=== PATIENT | female | born 1970 | race Caucasian/White ===

== ENCOUNTER → 2022-10-24 09:50 | Outpatient (BNVA) | payer OTHER, MEDICAID, SELFPAY | PROVIDERS: Family Provider Family Medicine; PCP Family Medicine; Visit Provider Family Medicine | DX: E05.90 Thyrotoxicosis, unspecified without thyrotoxic crisis or storm (principal); G40.909 Epilepsy, unspecified, not intractable, without status epilepticus; E11.9 Type 2 diabetes mellitus without complications; G62.9 Polyneuropathy, unspecified; K21.9 Gastro-esophageal reflux disease without esophagitis; E78.5 Hyperlipidemia, unspecified; J45.909 Unspecified asthma, uncomplicated; M81.0 Age-related osteoporosis without current pathological fracture; E16.2 Hypoglycemia, unspecified; F17.200 Nicotine dependence, unspecified, uncomplicated; Z71.6 Tobacco abuse counseling | CPT/HCPCS: 80053; 80061; 83036; 84439; 84443; 85025 ==

== ENCOUNTER → 2022-12-15 08:01 | Outpatient (BNVA) | payer OTHER, MEDICAID, SELFPAY | PROVIDERS: Family Provider Family Medicine; PCP Family Medicine; Visit Provider Psychiatry & Neurology Neurology | DX: G40.919 Epilepsy, unspecified, intractable, without status epilepticus (principal); E05.90 Thyrotoxicosis, unspecified without thyrotoxic crisis or storm; M81.0 Age-related osteoporosis without current pathological fracture; F17.210 Nicotine dependence, cigarettes, uncomplicated; E11.40 Type 2 diabetes mellitus with diabetic neuropathy, unspecified; Z79.84 Long term (current) use of oral hypoglycemic drugs | CPT/HCPCS: 99203 ==

== ENCOUNTER 2022-12-16 09:12 | Outpatient (CLI) | payer OTHER, MEDICAID, SELFPAY ==
[2022-12-16 09:38] LABS: Basophils # 0.1 10^3/uL (0.0-0.1); Basophils % 1.3 %; Eosinophils # 0.4 10^3/uL (0.0-0.8); Eosinophils % 6.5 %; Hematocrit 40.8 % (36-47); Lymphocytes # 2.8 10^3/uL (0.8-4.8); Mean Corpuscular HGB Conc 32.8 g/dL (30-55); Mean Corpuscular Hemoglobin 30.9 pg (27-33); Mean Platelet Volume 10.6 fL (7.4-10.4); Monocytes # 0.4 10^3/uL (0.2-0.9); Monocytes % 6.3 %; Neutrophils # 1.97 10^3/uL (1.8-7.7); Neutrophils % 35.7 %; Nucleated Red Blood Cells % 0 %; Platelet Count 205 10^3/cmm (157-399); Red Blood Count 4.34 10^6/uL (3.85-5.65); Red Cell Distribution Width 12.4 % (12.1-15.1); White Blood Count 5.52 10^3/uL (3.29-11.43)
[2022-12-16 09:59] LABS: Alanine Aminotransferase 10 U/L (0-33); Alkaline Phosphatase 93 U/L (35-105); Anion Gap 13.1 (5-19); Aspartate Amino Transferase 12 U/L (0-32); Blood Urea Nitrogen 14 mg/dL (6-20); Calcium 9.6 mg/dL (8.5-10.5); Carbon Dioxide 24 mmol/L (22-29); Chloride 105 mmol/L (98-107); Globulin 2.7 g/dL (1.3-4.6); Glomerular Filtration Rate 87.9 mL/min (90-130); Glucose 76 mg/dL (65-115); Osmolality Calculated 285 mOsm/kg (285-295); Potassium 4.1 mmol/L (3.5-5.1); Sodium 138 mmol/L (136-145); Total Bilirubin 0.2 mg/dL (0.15-1.2); Total Protein 6.7 g/dL (6.6-8.7)
[2022-12-17 11:39] LABS: Levetiracetam Immunoassy 21.4 mcg/mL (6.0-46.0)
== END 2022-12-16 09:13 | disposition home or self-care (01) ==
PROVIDERS: PCP Family Medicine; Visit Provider Psychiatry & Neurology Neurology
DX: G40.909 Epilepsy, unspecified, not intractable, without status epilepticus (principal); E05.90 Thyrotoxicosis, unspecified without thyrotoxic crisis or storm; M81.0 Age-related osteoporosis without current pathological fracture
CPT/HCPCS: 36415; 80053; 80177; 85025

== ENCOUNTER → 2022-12-20 14:07 | Outpatient (BNVA) | payer OTHER, MEDICAID, SELFPAY | PROVIDERS: PCP Family Medicine; Visit Provider Registered Nurse Neonatal Intensive Care | DX: S69.90XA Unspecified injury of unspecified wrist, hand and finger(s), initial encounter (principal); X58.XXXA Exposure to other specified factors, initial encounter | CPT/HCPCS: 73110 ==

== ENCOUNTER 2023-01-08 13:03 | Emergency (ER) | payer MEDICARE, MEDICAID, SELFPAY ==
[2023-01-08 13:06] VITALS: BP 109/69; PULSE 84; RESP 18; TEMP 36.8; O2SAT 96; BMI 22.6
--- NOTE | 2023-01-08 13:11 | XRR_ITS ---
PROCEDURE INFORMATION: Exam: XR Chest Exam date and time: 01/08/2023 1:22 PM Age: 52 years old Clinical indication: Chest wall pain; Additional info: Cp, HX asthma TECHNIQUE: Imaging protocol: Radiologic exam of the chest. Views: 1 view. COMPARISON: No relevant prior studies available. FINDINGS: Lungs: There is no consolidation. Pleural spaces: There is no pleural effusion or pneumothorax. Heart/Mediastinum: Cardiomediastinal contours are unremarkable. Bones/joints: Bones are unremarkable. XR/XR chest 1V [id number] IMPRESSION: No acute findings.
--- NOTE | 2023-01-08 13:12 | ECG_ITS ---
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 Measurements Intervals [place] Rate: 83 P: 69 VA: 183 QRS: 145 QRSD: 94 T: 73 QT: 364 QTc: 428 Interpretive Statements SINUS RHYTHM INDETERMINATE AXIS INCOMPLETE RIGHT BUNDLE BRANCH BLOCK [90+ ms QRS DURATION, TERMINAL R IN V1/V2, 40+ ms S IN I/aVL/V4/V5/V6] No previous ECG available for comparison Electronically Signed On 01-08-2023 21:27:51 FOOD AND NUTRITION SERVICES SUPERVISOR by Mary Alice Kelly M.D. [id number] f
--- NOTE | 2023-01-08 13:13 | ED_ITS ---
<Statement entered by Kamran Shabazz DO - 01/08/23 16:12> This chart is being reviewed for hospital part policy regarding patient seen by advanced practice providers in this emergency department. This patient was not seen or evaluated by me personally. The advanced practice provider did review this case with me. I agree with the management as documented in this chart. HPI - Chest Pain 2 General: Chief Complaint: Chest Pain Stated Complaint: CHEST PAIN Time Seen by Provider: 01/08/23 13:08 Source: patient and EMS Mode of arrival: EMS Limitations: no limitations History of Present Illness: Patient presents emergency department today brought by EMS for evaluation treatment of sharp retrosternal chest pains. Patient states that she was doing some housework when she noticed sudden onset of her discomfort. She called 911 and EMS indicates patient was on her porch waiting for their arrival. Patient was wheezy when they got there. She does have a history of asthma and reports taking asthma medication daily. They provided her 325 aspirin, a breathing treatment and nitro. Patient states she noticed improvement of her discomfort after the nitro but now reports chest pain returning approximately 5 out of 10. POC glucose by EMS was 110. Patient denies any recent illness with acute worsening of cough or congestion. EMS reports history of hyperthyroidism, angina, and seizures. Review of Systems 2 General: Reports: 10 or more systems reviewed and unremarkable except in HPI and below PFSH ED 2 PFSH: Medical History Epilepsy Hyperthyroidism DM type 2 (diabetes mellitus, type 2) Osteoporosis Neuropathy Asthma Surgical History H/O shoulder surgery H/O: knee surgery H/O removal of cyst Family History Father Chronic kidney disease (CKD) Mother Anxiety Grandmother Cancer Maternal-breast Other Dementia Lung disease Denies family history of Diabetes CAD (coronary artery disease) Clotting disorder Hyperlipidemia Psychiatric illness Anesthesia complication Bleeding disorder Hypertension Stroke Social History Smoking and tobacco/nicotine status: current every day tobacco/nicotine user cigarettes Packs smoked per day: 1.5 Quit status (tobacco/nicotine): not considering quitting Second hand smoke exposure: No Alcohol intake: former Substance/Drug Use: current Substance/Drug use frequency: few times a month Other substance/drug use details: edibles Lives independently: Yes Marital status: Life Partner Current occupational status: disabled Special tegan needs: No Agree to transfusion: Yes Physical Exam 2 Const: COMMON NORMALS: no acute distress, patient oriented x3 and alert HENMT: COMMON NORMALS: normocephalic, atraumatic, hearing grossly normal bilaterally and moist oral mucous membranes HEAD & SCALP: normocephalic and atraumatic Eye: COMMON NORMALS: Equal, round and reactive pupils present, EOMs intact bilaterally and conjunctivae normal CONJUNCTIVA: Yes conjunctivae normal P UPIL: Yes Equal, round and reactive pupils present Neck/C-Spine: COMMON NORMALS: full ROM and no JVD Lymph: LYMPHATIC: no lymphadenopathy noted Resp: COMMON NORMALS: normal respiratory effort, No retractions and No use of accessory muscles OTHER: Patient has diminished lung sounds bilaterally and throughout all lobes. Pulse ox 96% on room air Cardio: COMMON NORMALS: no JVD, regular rate and regular rhythm RATE: r egular rate RHYTHM: regular rhythm : COMMON NORMALS: Yes no CVA tenderness BLADDER/KIDNEY EXAM: Yes no CVA tenderness Back/Pelvis: COMMON NORMALS: no CVA tenderness, no thoracic nor lumbar tenderness and thoraco-lumbar ROM normal Extremity: COMMON NORMALS: normal to inspection, full ROM and capillary refill normal Neuro: COMMON NORMALS: patient oriented x3 SENSORIUM/ORIENTATION: Yes alert Psych: COMMON NORMALS: mental status grossly normal, Normal thought process present, cooperative, normal affect and activity/motor behavior normal T HOUGHT PROCESS: Normal thought process present Skin: COMMON NORMALS: no rashes or lesions noted and no wounds GENERAL SKIN EXAM: no rashes or lesions noted Course 2 Vital Signs: Vital signs: Vital Signs Temperature 98.3 F 01/08/23 13:06 Pulse Rate 85 01/08/23 15:54 Respiratory Rate 18 01/08/23 14:10 Blood Pressure 108/57 01/08/23 15:54 Pulse Oximetry 97 01/08/23 15:54 Oxygen Delivery Me thod Room Air 01/08/23 15:54 MDM - Chest Pain Medical Decision Making Cardiac evaluation today is negative. No signs of acute STEMI on EKG with second read by Dr Shabazz. Troponins indicate no signs of NSTEMI. Patient received steroids and a DuoNeb treatment here in the emergency department. Patient notes significant improvement to her chest discomfort after these treatments. Did discuss with her no other acute findings on her lab work today and would encourage continued treatment for a COPD/asthma exacerbation. Patient states that she recently moved back to the area about 3 months ago and prior to moving from [place] the first time, she had significant allergy and asthma flareups in the fall. I encouraged patient to use her rescue inhaler every 2-4 hours for the next couple of days. She is also given a methylprednisolone Dosepak as well. I encouraged follow-up appoint with her primary care doctor later this week for recheck. However, we went over signs and symptoms of both cardiac concern and stroke for which patient will need to return back here to the emergency department for full evaluation. Patient verbalized understanding and agreement to treatment plan. Differential Diagnosis Unlikely acute massive pulmonary embolism, acute respiratory failure, acute myocardial infarction, cardiac arrest or sudden cardiac Lab Data 01/08/23 12:30 01/08/23 12:30 Radiology Impressions Chest X-Ray 01/08/23 13:11 IMPRESSION: No acute findings. Laboratory Results WBC 4.24 10^3/uL (3.29-11.43) 01/08/23 12:30 RBC 4.36 10^6/uL (3.85-5.65) 01/08/23 12:30 Hgb 13.30 g/dL (11.27-16.99) 01/08/23 12:30 Hct 40.1 % (36-47) 01/08/23 12:30 MCV 92.0 fl (85-98) 01/08/23 12:30 MCH 30.5 pg (27-33) 01/08/23 12:30 MCHC 33.2 g/dL (30-55) 01/08/23 12:30 RDW 12.7 % (12.1-15.1) 01/08/23 12:30 Plt Count 158 10^3/cmm (157-399) 01/08/23 12:30 MPV 10.8 fL (7.4-10.4) H 01/08/23 12:30 Neut % (Auto) 43.7 % 01/08/23 12:30 Lymph % (Auto) 43.2 % 01/08/23 12:30 [place] % (Auto) 11.1 % 01/08/23 12:30 Eos % (Auto) 0.9 % 01/08/23 12:30 Baso % (Auto) 0.9 % 01/08/23 12:30 Neut # (Auto) 1.85 10^3/uL (1.8-7.7) 01/08/23 12:30 Lymph # (Auto) 1.8 10^3/uL (0.8-4.8) 01/08/23 12:30 [place]ountain # (Auto) 0.5 10^3/uL (0.2-0.9) 01/08/23 12:30 Eos # (Auto) 0.0 10^3/uL (0.0-0.8) 01/08/23 12:30 Baso # (Auto) 0.0 10^3/uL (0.0-0.1) 01/08/23 12:30 Nucleated RBC % (auto) 0 % 01/08/23 12:30 Nucleated RBCs # 0.0 /100WBC 01/08/23 12:30 Sodium 141 mmol/L (136-145) 01/08/23 12:30 Potassium 4.2 mmol/L (3.5-5.1) 01/08/23 12:30 Chloride 107 mmol/L (98-107) 01/08/23 12:30 Carbon Dioxide 24 mmol/L (22-29) 01/08/23 12:30 Anion Gap 14.2 (5-19) 01/08/23 12:30 BUN 17 mg/dL (6-20) 01/08/23 12:30 Creatinine 0.9 mg/dL (0.5-0.9) 01/08/23 12:30 GFR Calculation 65.8 mL/min (90-130) L 01/08/23 12:30 Glucose 78 mg/dL (65-115) 01/08/23 12:30 Calculated Osmolality 292 mOsm/kg (285-295) 01/08/23 12:30 Calcium 9.8 mg/dL (8.5-10.5) 01/08/23 12:30 Total Bilirubin 0.2 mg/dL (0.15-1.2) 01/08/23 12:30 AST 13 U/L (0-32) 01/08/23 12:30 ALT 8 U/L (0-33) 01/08/23 12:30 Alkaline Phosphatase 101 U/L (35-105) 01/08/23 12:30 Troponin T Baseline < 6 ng/L (0-10) 01/08/23 12:30 Troponin T 120 Minute 6.00 ng/L (0-10) 01/08/23 14:42 Delta Troponin T 0.52130 ABS# (0-10) 01/08/23 14:42 Total Protein 6.5 g/dL (6.6-8.7) L 01/08/23 12:30 Albumin 4.2 g/dL (3.5-5.2) 01/08/23 12:30 Globulin 2.3 g/dL (1.3-4.6) 01/08/23 12:30 TSH 3.05 uIU/mL (0.27-4.20) 01/08/23 12:30 Urine Color Yellow (Yellow) 01/08/23 13:48 Urine Appearance Hazy (CLEAR) A 01/08/23 13:48 Urine pH 8 (5-7) H 01/08/23 13:48 Ur Specific [place] 1.010 (1.005-1.030) 01/08/23 13:48 Urine Protein Neg (Negative) 01/08/23 13:48 Urine Glucose (UA) Norm (Normal) 01/08/23 13:48 Urine Ketones 1+ (Negative) H 01/08/23 13:48 Urine Blood 3+ (Negative) H 01/08/23 13:48 Urine Nitrate Negative (Negative) 01/08/23 13:48 Urine Bilirubin Neg (Negative) 01/08/23 13:48 Urine Urobilinogen 1 mg/dL (Negative) H 01/08/23 13:48 Ur Leukocyte Esterase Negative (Negative) 01/08/23 13:48 Urine RBC 5-10 /hpf (0-2) H 01/08/23 13:48 Urine WBC 0-4 /hpf (0-5) H 01/08/23 13:48 Ur Squamous Epith Cells 0-4 /hpf (0-5) H 01/08/23 13:48 Amorphous Sediment 4+ /hpf 01/08/23 13:48 Urine Bacteria Trace /hpf (NONE) 01/08/23 13:48 All radiology interpretation(s) finalized by discharge Discharge Plan Discharge Patient Disposition: Home Clinical Impression: Non-cardiac chest pain Condition: Stable Prescriptions: New Methylpred DP 4 mg tablets,dose pack See Rx Instructions .ROUTE .COMPLEX Qty: 21 0RF Rx Instructions: orally per package directions No Action albuterol sulfate 90 mcg/actuation HFA aerosol inhaler 1 inh inhalation QID PRN (Reason: shortness of breath or wheezing) Qty: 8.5 3RF methimazole 10 mg tablet 10 mg PO DAILY Qty: 90 1RF rosuvastatin 20 mg tablet 20 mg PO DAILY Qty: 90 1RF Xcopri 150 mg tablet 150 mg PO DAILY Qty: 90 2RF levetiracetam 750 mg tablet 1,500 mg PO BID Qty: 360 2RF pantoprazole 40 mg tablet,delayed release (DR/EC) See Rx Instructions .ROUTE .COMPLEX Qty: 90 0RF Dose Instruction: TAKE 1 TABLET BY MOUTH DAILY Rx Instructions: TAKE 1 TABLET BY MOUTH DAILY (DME) lancets [OneTouch UltraSoft 2 Lancet] 30 gauge misc See Rx Instructions .Route Qty: 100 2RF Rx Instructions: As directed Discharge Orders: Discharge ED (Routine); Ordered 01/08/23 Ordered By: Elza Lomas Referrals: Charli Bonilla MD [Primary Care Provider] - Discharge Diet: Usual diet Discharge Activity: Increase activity as tolerated Patient Instructions: Chest Pain - Noncardiac Activity Restrictions/Additional Instructions: Labs today are unremarkable. We did do an evaluation on your heart to make sure you are not showing any underlying signs of heart damage. All of these labs came back normal. The electrical tracings of your heart also showed no signs of acute abnormalities. I am providing you a burst of steroids to help with a potential acute flareup of asthma/COPD. I encourage you to use your inhaler every 2-4 hours for the next couple of days before returning to your typical once a day usage. Also, I do recommend a follow-up appoint with your primary care doctor later this week. However, if you develop recurrence of chest pain, severe headache, fevers, vomiting, or numbness to your left arm or any type of facial droop or weakness you need to return back here to the emergency department. Coding Level of Care Code ED Senior Media Buyer for Pankaj Terrell
[2023-01-08 13:22] LABS: Basophils % 0.9 %; Eosinophils % 0.9 %; Hematocrit 40.1 % (36-47); Lymphocytes # 1.8 10^3/uL (0.8-4.8); Lymphocytes % 43.2 %; Mean Corpuscular HGB Conc 33.2 g/dL (30-55); Mean Corpuscular Hemoglobin 30.5 pg (27-33); Mean Platelet Volume 10.8 fL (7.4-10.4); Monocytes # 0.5 10^3/uL (0.2-0.9); Monocytes % 11.1 %; Neutrophils # 1.85 10^3/uL (1.8-7.7); Neutrophils % 43.7 %; Nucleated Red Blood Cells % 0 %; Platelet Count 158 10^3/cmm (157-399); Red Blood Count 4.36 10^6/uL (3.85-5.65); Red Cell Distribution Width 12.7 % (12.1-15.1); White Blood Count 4.24 10^3/uL (3.29-11.43)
[2023-01-08 13:36] VITALS: BP 109/60; PULSE 81; O2SAT 96
[2023-01-08 13:49] LABS: Alanine Aminotransferase 8 U/L (0-33); Albumin Level 4.2 g/dL (3.5-5.2); Alkaline Phosphatase 101 U/L (35-105); Anion Gap 14.2 (5-19); Aspartate Amino Transferase 13 U/L (0-32); Blood Urea Nitrogen 17 mg/dL (6-20); Calcium 9.8 mg/dL (8.5-10.5); Carbon Dioxide 24 mmol/L (22-29); Chloride 107 mmol/L (98-107); Globulin 2.3 g/dL (1.3-4.6); Glomerular Filtration Rate 65.8 mL/min (90-130); Glucose 78 mg/dL (65-115); Osmolality Calculated 292 mOsm/kg (285-295); Potassium 4.2 mmol/L (3.5-5.1); Sodium 141 mmol/L (136-145); Total Bilirubin 0.2 mg/dL (0.15-1.2); Total Protein 6.5 g/dL (6.6-8.7)
[2023-01-08 13:52] LABS: Troponin(5th) Baseline < 6 ng/L (0-10)
[2023-01-08 14:00] VITALS: PULSE 76; O2SAT 98
[2023-01-08 14:07] LABS: Add Urine Culture? No; Add Urine Microscopic? YES; Amorphous Sediment Urine 4+ /hpf; Bacteria Urine TRACE /hpf; Bilirubin Urine Neg (Negative); Blood Urine 3+ (Negative); Glucose Urine UA Norm (Normal); Ketones Urine 1+ (Negative); Leukocyte Esterase Urine Negative (Negative); Nitrate Urine Negative (Negative); Protein Urine Neg (Negative); Squamous Epithelial Cell Urine 0-4 /hpf (0-5); Urine Appearance Hazy (CLEAR); Urine Color Yellow (Yellow); Urobilinogen Urine 1 mg/dL (Negative); WBC Urine 0-4 /hpf (0-5); pH Urine 8 (5-7)
[2023-01-08] MEDS: ipratropium-albuterol 3 mL Neb INHALATION (14:07)
[2023-01-08 14:10] VITALS: PULSE 81; RESP 18; O2SAT 94
[2023-01-08] MEDS: sodium chloride 0.9% 1,000 ML 999 ML IV (14:16)
[2023-01-08 14:26] LABS: Thyroid Stimulating Hormone 3.05 uIU/mL (0.27-4.20)
[2023-01-08 14:42] VITALS: BP 109/57; PULSE 77; O2SAT 95
[2023-01-08] MEDS: methylPREDNISolone sod succ 125 MG in water for injection-sterile 2 ML 24 MG IVP (14:50)
[2023-01-08 15:15] LABS: Troponin 5 2HR Delta 0.00001 ABS# (0-10)
[2023-01-08 15:54] VITALS: BP 108/57; PULSE 85; O2SAT 97
== END 2023-01-08 15:56 | disposition home or self-care (01) ==
PROVIDERS: Emergency Provider Physician Assistant; PCP Family Medicine
DX: R07.89 Other chest pain (principal); F17.210 Nicotine dependence, cigarettes, uncomplicated; E11.40 Type 2 diabetes mellitus with diabetic neuropathy, unspecified
CPT/HCPCS: 71045; 80053; 81001; 84443; 84484; 85025; 93005; 94640; 96361; 96374; 99285; J2930; J7030

== ENCOUNTER → 2023-01-11 08:23 | Outpatient (BNVA) | payer OTHER, MEDICAID, SELFPAY | PROVIDERS: PCP Family Medicine; Referring Provider Family Medicine; Visit Provider Internal Medicine | DX: M81.0 Age-related osteoporosis without current pathological fracture (principal); E05.90 Thyrotoxicosis, unspecified without thyrotoxic crisis or storm; E04.1 Nontoxic single thyroid nodule; R13.10 Dysphagia, unspecified | CPT/HCPCS: 36415; 82306; 83516; 86376; 86800; 99204 ==

== ENCOUNTER 2023-03-13 07:43 | Outpatient (CLI) | payer MEDICARE, MEDICAID, SELFPAY ==
--- NOTE | 2023-03-13 07:55 | NM_ITS ---
WS: [id number] NUCLEAR MEDICINE THYROID UPTAKE AND SCAN HISTORY: thyroid nodule COMPARISON: None available. Radionucleotide: 134 uCi Iodine-123 sodium iodide capsule. Oral ingestion. Imaging performed at 24 hours post ingestion of capsule. Marker placed over the chin and suprasternal notch. Homogeneous symmetric distribution throughout the thyroid gland. No area of focal photopenia or incre ased uptake to suggest a hypo or hyperfunctioning nodule. Gland measures approximate 5 cm in length w hich is normal. RIGHT lobe is slightly greater in size than the LEFT. Thyroid uptake at 24 hours: 63.8%. (Normal uptake at 24 hours 10-30%). IMPRESSION: 1. RIGHT thyroid lobe slightly greater in size than the LEFT. 2. No photopenic nodules. 3. Increased thyroid uptake at 24 hours to 63.8%.
== END 2023-03-13 07:44 | disposition home or self-care (01) ==
PROVIDERS: Family Provider Specialist; PCP Family Medicine; Visit Provider Internal Medicine
DX: E04.1 Nontoxic single thyroid nodule (principal)
CPT/HCPCS: 78014; A9516

== ENCOUNTER 2023-03-16 12:29 | Outpatient (CLI) | payer MEDICARE, MEDICAID, SELFPAY ==
--- NOTE | 2023-03-16 12:33 | XR_ITS ---
WS: [id number] SCREENING DEXA SCAN [employer] CLINICAL INFORMATION: screening osteoporosis COMPARISON: 2012 FINDINGS: The L1-L4 bone mineral density measures 0.861 g/cm2. This corresponds to a T score score of -2.7 and Z score of -2.2. Right femoral neck bone mineral density measures 0.592 g/cm2. This corresponds to a T score -3.3of an d Z score of -2.8. IMPRESSION: Osteoporosis lumbar spine. Osteoporosis femoral necks. Patient's FRAX calculated 10 year probability for major osteoporotic fracture is 32.4% and osteoporot ic hip fracture is 21.5%. Bone mineral density lumbar spine decreased -14.6% Bone mineral density femoral necks decreased -24.4%
== END 2023-03-16 12:30 | disposition home or self-care (01) ==
LOC: RAD 12:29
PROVIDERS: Family Provider Specialist; PCP Family Medicine; Visit Provider Family Medicine
DX: M81.0 Age-related osteoporosis without current pathological fracture (principal); Z13.820 Encounter for screening for osteoporosis
CPT/HCPCS: 77080

== ENCOUNTER → 2023-03-20 10:33 | Outpatient (BNVA) | payer MEDICARE, MEDICAID, SELFPAY | PROVIDERS: Family Provider Specialist; PCP Family Medicine; Visit Provider Internal Medicine | DX: E78.5 Hyperlipidemia, unspecified (principal); M81.0 Age-related osteoporosis without current pathological fracture; E05.90 Thyrotoxicosis, unspecified without thyrotoxic crisis or storm; E04.1 Nontoxic single thyroid nodule; Z79.899 Other long term (current) drug therapy | CPT/HCPCS: 36415; 80053; 82306; 84439; 84443; 84480; 99214 ==

== ENCOUNTER 2023-03-23 08:31 | Outpatient (CLI) | payer MEDICARE, MEDICAID, SELFPAY ==
--- NOTE | 2023-03-23 08:41 | CTR_ITS ---
PROCEDURE INFORMATION: Exam: CT Neck Without Contrast Exam date and time: 03/23/2023 8:58 AM Age: 52 years old Clinical indication: Dysphagia / difficulty swallowing; Additional info: Nontoxic single thyroid nodule/dysphagia TECHNIQUE: Imaging protocol: Computed tomography of the neck without contrast. Radiation optimization: All CT scans at this facility use at least one of these dose optimization techniques: automated exposure control; mA and/or kV adjustment per patient size (includes targeted exams where dose is matched to clinical indication); or iterative reconstruction. COMPARISON: NM thyroid uptake multi [id number] 03/13/2023 7:55 AM RADIATION DOSE METRICS: Total DLP (mGy-cm): 208.89 FINDINGS: Pharynx: Unremarkable. No significant tonsillar enlargement. Larynx: Unremarkable. Epiglottis is normal. Prevertebral and retropharyngeal spaces: Unremarkable. Salivary glands: Normal. Glands are normal in size. Thyroid: Heterogeneous right thyroid nodule, poorly characterized without IV contrast but measuring up to approximately 5.5 cm in craniocaudal dimension. Calcification in the left thyroid gland. Lymph nodes: Unremarkable. No lymphadenopathy. Trachea: Visualized trachea is unremarkable. Lungs: Emphysema in the lung apices. 3 mm right upper lobe nodule. Bones/joints: Unremarkable. No acute fracture. Soft tissues: Unremarkable. No significant soft tissue swelling. CT/CT neck wo con [id number] IMPRESSION: 1. Heterogeneous right thyroid nodule, poorly characterized without IV contrast but measuring up to approximately 5.5 cm in craniocaudal dimension. 2. Emphysema in the lung apices. 3 mm right upper lobe nodule. Consider optional CT Chest at 12 months. (Reference: Madeleine) REFERENCES: Madeleine Rader et al. Guidelines for Management of Incidental Pulmonary Nodules Detected on CT Images: From the Fleischner Society 2017. Radiology. 2017;284(1):228-243.
== END 2023-03-23 08:32 | disposition home or self-care (01) ==
LOC: RAD 08:32
PROVIDERS: Family Provider Specialist; PCP Family Medicine; Visit Provider Specialist
DX: E04.1 Nontoxic single thyroid nodule (principal); R13.10 Dysphagia, unspecified; J43.9 Emphysema, unspecified; R91.1 Solitary pulmonary nodule; G40.919 Epilepsy, unspecified, intractable, without status epilepticus; E55.9 Vitamin D deficiency, unspecified; R41.3 Other amnesia; M81.0 Age-related osteoporosis without current pathological fracture; Z79.899 Other long term (current) drug therapy
CPT/HCPCS: 70490; 99212

== ENCOUNTER 2023-04-06 09:00 | Outpatient (CLI) | payer MEDICARE, MEDICAID, SELFPAY ==
--- NOTE | 2023-04-06 09:05 | FL_ITS ---
WS: [id number] Exam: FL barium swallow [id number] Date/Time of Exam: 04/06/2023 9:08 AM Reason For Exam: Dysphagia Fluoroscopy time: 2min 5.061182xin minutes # of spot films: Oropharyngeal phase of swallowing was normal. The esophagus is smooth in contour. No sign of mass or stricture. The esophagus is not displaced. No reflux noted. IMPRESSION: 1. Unremarkable esophagram.
== END 2023-04-06 09:01 | disposition home or self-care (01) ==
LOC: RAD 09:00
PROVIDERS: Family Provider Specialist; PCP Family Medicine; Visit Provider Specialist
DX: R13.10 Dysphagia, unspecified (principal)
CPT/HCPCS: 74220

== ENCOUNTER → 2023-05-09 09:13 | Outpatient (BNVA) | payer MEDICARE, MEDICAID, SELFPAY | PROVIDERS: Family Provider Specialist; PCP Family Medicine; Visit Provider Podiatrist Foot & Ankle Surgery | DX: L98.9 Disorder of the skin and subcutaneous tissue, unspecified (principal); L98.8 Other specified disorders of the skin and subcutaneous tissue; M21.372 Foot drop, left foot; G62.9 Polyneuropathy, unspecified; L84 Corns and callosities; E11.42 Type 2 diabetes mellitus with diabetic polyneuropathy | CPT/HCPCS: 99203 ==

== ENCOUNTER → 2023-05-17 08:35 | Outpatient (BNVA) | payer MEDICARE, MEDICAID, SELFPAY | PROVIDERS: Family Provider Specialist; PCP Family Medicine; Visit Provider Internal Medicine | DX: E78.5 Hyperlipidemia, unspecified (principal); M81.0 Age-related osteoporosis without current pathological fracture; E05.90 Thyrotoxicosis, unspecified without thyrotoxic crisis or storm; E04.1 Nontoxic single thyroid nodule; E55.9 Vitamin D deficiency, unspecified; R13.10 Dysphagia, unspecified | CPT/HCPCS: 36415; 80053; 82306; 84439; 84443; 84480; 99214 ==

== ENCOUNTER 2023-05-29 09:44 | Outpatient (CLI) | payer MEDICARE, MEDICAID, SELFPAY ==
[2023-05-29 10:27] LABS: Calcium 10.1 mg/dL (8.5-10.5); Parathyroid Hormone 79.8 pg/mL (15-65)
[2023-05-29 10:38] LABS: 25 Hydroxy Vitamin D 58 ng/mL (30-100); Thyroid Stimulating Hormone 1.42 uIU/mL (0.27-4.20)
[2023-05-29 11:19] LABS: Free T4 Free Thyroxine 1.06 ng/dL (0.82-1.77)
[2023-05-30 09:20] LABS: T3 Total 82 ng/dL (76-181)
== END 2023-05-29 09:45 | disposition home or self-care (01) ==
LOC: LAB 09:47
PROVIDERS: PCP Family Medicine; Visit Provider Internal Medicine
DX: E55.9 Vitamin D deficiency, unspecified (principal); M81.0 Age-related osteoporosis without current pathological fracture; E05.90 Thyrotoxicosis, unspecified without thyrotoxic crisis or storm; E04.1 Nontoxic single thyroid nodule; E78.5 Hyperlipidemia, unspecified
CPT/HCPCS: 36415; 82306; 82310; 83970; 84439; 84443; 84480

== ENCOUNTER → 2023-05-31 15:09 | Outpatient (BNVA) | payer MEDICARE, MEDICAID, SELFPAY | PROVIDERS: PCP Family Medicine; Referring Provider Podiatrist Foot & Ankle Surgery; Visit Provider Dermatology | DX: L30.9 Dermatitis, unspecified (principal); L82.1 Other seborrheic keratosis; D22.39 Melanocytic nevi of other parts of face | CPT/HCPCS: 11102; 99203 ==

== ENCOUNTER 2023-07-13 20:22 | Emergency (ER) | payer MEDICARE, MEDICAID, SELFPAY ==
[2023-07-13 20:23] VITALS: BP 107/77; PULSE 86; RESP 20; O2SAT 96; BMI 24.5
--- NOTE | 2023-07-13 20:31 | CTR_ITS ---
PROCEDURE INFORMATION: Exam: CT Head Without Contrast Exam date and time: 07/13/2023 8:53 PM Age: 52 years old Clinical indication: Dizziness; Additional info: Dizzy TECHNIQUE: Imaging protocol: Computed tomography of the head without contrast. Radiation optimization: All CT scans at this facility use at least one of these dose optimization techniques: automated exposure control; mA and/or kV adjustment per patient size (includes targeted exams where dose is matched to clinical indication); or iterative reconstruction. COMPARISON: No relevant prior studies available. RADIATION DOSE METRICS: Total DLP (mGy-cm): 1002 FINDINGS: Brain: No acute intracranial hemorrhage, abnormal extra-axial fluid collection, mass effect, or midline shift. Nonspecific prominence of the extra axial spaces is noted. Cerebral ventricles: The ventricular system is within normal limits of variation for the patient's age. Paranasal sinuses: Visualized paranasal sinuses are grossly unremarkable. No air fluid levels. Mastoid air cells: Visualized mastoid air cells are well aerated. Bones: No acute fracture. Soft tissues: Grossly unremarkable. CT/CT head wo con* [id number] IMPRESSION: No acute intracranial findings.
--- NOTE | 2023-07-13 20:31 | ECG_ITS ---
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 Measurements Intervals [place] Rate: 86 P: 73 DC: 178 QRS: 251 QRSD: 100 T: 71 QT: 365 QTc: 438 Interpretive Statements SINUS RHYTHM POSSIBLE LEFT ATRIAL ENLARGEMENT [-0.1mV P-WAVE IN V1/V2] INDETERMINATE AXIS INCOMPLETE RIGHT BUNDLE BRANCH BLOCK [90+ ms QRS DURATION, TERMINAL R IN V1/V2, 40+ ms S IN I/aVL/V4/V5/V6] POSSIBLE RIGHT VENTRICULAR HYPERTROPHY [SOME/ALL OF: PROMINENT R IN V1, LATE TRANSITION, RAD, MESHA, SSS] Compared to ECG 01/08/2023 13:11:22 Atrial abnormality now present Electronically Signed On 07-14-2023 0:39:54 CDT by Linus Boyd M.D. [id number] janice
--- NOTE | 2023-07-13 20:31 | XRR_ITS ---
PROCEDURE INFORMATION: Exam: XR Chest Exam date and time: 07/13/2023 9:02 PM Age: 52 years old Clinical indication: Dyspnea; Additional info: Cp TECHNIQUE: Imaging protocol: Radiologic exam of the chest. Views: 1 view. COMPARISON: CR (CHEST, ) 01/08/2023 1:22 PM FINDINGS: Lungs: No consolidation. Pleural spaces: No pleural effusion. No pneumothorax. Heart/Mediastinum: No cardiomegaly. Bones/joints: No acute fracture. XR/XR chest 1V portable [id number] IMPRESSION: No acute cardiopulmonary findings.
--- NOTE | 2023-07-13 20:57 | ED_ITS ---
HPI - Chest Pain 2 General: Chief Complaint: Chest Pain Stated Complaint: Chest Pain Time Seen by Provider: 07/13/23 20:25 Source: patient and EMS Mode of arrival: EMS Limitations: no limitations History of Present Illness: 52-year-old female states she started ne w medication Forteo 3 days ago. States that an injection states last 3 days when she is taking the injection she states its made her feel drunk dizzy and having chest pain. States he took it tonight and later started having the same symptoms. She states she had some slurred speech and blood since resolved. She states she is feels woozy and having some mild chest pain she denies any fever denies any vomiting or diarrhea Associated symptoms: Deny abdominal pain, dyspnea, fever(s), nausea or vomiting Review of Systems 2 Const: Reports: fatigue; Denies: fever(s), chills, body aches or change in appetite ENMT: Denies: throat pain or dental pain Card: Reports: chest pain Resp: Denies: dyspnea GI: Denies: abdominal pain, nausea, vomiting or diarrhea Musc: Denies: neck pain or back pain Skin/Breast: Denies: rash Neuro: Reports: headache(s) PFSH ED 2 PFSH: Medical History Epilepsy Hyperthyroidism DM type 2 (diabetes mellitus, type 2) Osteoporosis Neuropathy Asthma Surgical History H/O shoulder surgery H/O: knee surgery H/O removal of cyst Family History Father Chronic kidney disease (CKD) Mother Anxiety Grandmother Cancer Maternal-breast Other Dementia Lung disease Denies family history of Diabetes CAD (coronary artery disease) Clotting disorder Hyperlipidemia Psychiatric illness Anesthesia complication Bleeding disorder Hypertension Stroke Social History Smoking and tobacco/nicotine status: current every day tobacco/nicotine user cigarettes Packs smoked per day: 1 Quit status (tobacco/nicotine): not considering quitting Second hand smoke exposure: No Alcohol intake: former Substance/Drug Use: current Substance/Drug use frequency: few times a month Other substance/drug use details: edibles Lives independently: Yes Marital status: Life Partner Current occupational status: disabled Special tegan needs: No Agree to transfusion: Yes Physical Exam 2 Const: COMMON NORMALS: no acute distress, patient oriented x3 and healthy appearing HENMT: COMMON NORMALS: normocephalic and atraumatic HEAD & SCALP: n ormocephalic and atraumatic Eye: COMMON NORMALS: Equal, round and reactive pupils present and EOMs intact bilaterally PUPIL: Yes Equal, round and reactive pupils present Neck/C-Spine: COMMON NORMALS: full ROM and supple Chest: COMMONS NORMALS: normal inspection of the chest and normal palpation of entire chest wall Resp: COMMON NORMALS: normal respiratory effort, No retractions, No use of accessory muscles and clear to auscultation bilaterally AUSCULTATION: clear to auscultation bilaterally Cardio: COMMON NORMALS: regular rate, regular rhythm and No murmurs present (Cardio) RATE: regular rate RHYTHM: regular rhythm Extremity: COMMON NORMALS: normal to inspection and full ROM Neuro: COMMON NORMALS: patient oriented x3, moves all extremities and no focal motor deficits CRANIAL NERVES: Yes CN normal except as noted SPEECH: s peech normal Psych: COMMON NORMALS: mental status grossly normal, Normal thought process present and cooperative THOUGHT PROCESS: Normal thought process present Skin: COMMON NORMALS: no rashes or lesions noted and no wounds GENERAL SKIN EXAM: no rashes or lesions noted Course 2 Vital Signs: Vital signs: Vital Signs Temperature 97.8 F 07/13/23 21:53 Pulse Rate 76 07/13/23 21:53 Respiratory Rate 16 07/13/23 21:53 Blood Pressure 95/62 07/13/23 21:53 Pulse Oximetry 96 07/13/23 21:53 Oxygen Delivery Me thod Room Air 07/13/23 21:14 MDM - Chest Pain Medical Decision Making Patient's recent chest pain headache is atypical in nature is likely a reaction to her medicine troponin blood work here is all normal she feels improved inform her she needs to talk to her PCP likely stop taking the medicine until she is followed up with her she is to return if worsening she understands agrees to plan Medical Records I reviewed the patient's medical records. Lab Data I reviewed the patient's lab results. 07/13/23 20:30 07/13/23 20:30 Radiology Impressions Chest X-Ray 07/13/23 20:31 IMPRESSION: No acute cardiopulmonary findings. Head CT 07/13/23 20:31 IMPRESSION: No acute intracranial findings. Laboratory Results WBC 6.77 10^3/uL (3.29-11.43) 07/13/23 20:30 RBC 4.69 10^6/uL (3.85-5.65) 07/13/23 20:30 Hgb 14.20 g/dL (11.27-16.99) 07/13/23 20:30 Hct 42.5 % (36-47) 07/13/23 20:30 MCV 90.6 fl (85-98) 07/13/23 20:30 MCH 30.3 pg (27-33) 07/13/23 20: MCHC 33.4 g/dL (30-55) 07/13/23 20:30 RDW 12.9 % (12.1-15.1) 07/13/23 20:30 Plt Count 205 10^3/cmm (157-399) 07/13/23 20:30 MPV 11.2 fL (7.4-10.4) H 07/13/23 20:30 Neut % (Auto) 40.5 % 07/13/23 20:30 Lymph % (Auto) 49.6 % 07/13/23 20:30 [place] % (Auto) 4.7 % 07/13/23 20:30 Eos % (Auto) 4.4 % 07/13/23 20:30 Baso % (Auto) 0.7 % 07/13/23 20:30 Neut # (Auto) 2.73 10^3/uL (1.8-7.7) 07/13/23 20:30 Lymph # (Auto) 3.4 10^3/uL (0.8-4.8) 07/13/23 20:30 [place] # (Auto) 0.3 10^3/uL (0.2-0.9) 07/13/23 20:30 Eos # (Auto) 0.3 10^3/uL (0.0-0.8) 07/13/23 20:30 Baso # (Auto) 0.1 10^3/uL (0.0-0.1) 07/13/23 20:30 Nucleated RBC % (auto) 0 % 07/13/23 20:30 Nucleated RBCs # 0.0 /100WBC 07/13/23 20:30 Sodium 137 mmol/L (136-145) 07/13/23 20:30 Potassium 4.0 mmol/L (3.5-5.1) 07/13/23 20:30 Chloride 101 mmol/L (98-107) 07/13/23 20:30 Carbon Dioxide 26 mmol/L (22-29) 07/13/23 20:30 Anion Gap 14.0 (5-19) 07/13/23 20:30 BUN 13 mg/dL (6-20) 07/13/23 20:30 Creatinine 0.9 mg/dL (0.5-0.9) 07/13/23 20:30 GFR Calculation 65.8 mL/min (90-130) L 07/13/23 20:30 Glucose 181 mg/dL (65-115) H 07/13/23 20:30 Calculated Osmolality 289 mOsm/kg (285-295) 07/13/23 20:30 Calcium 10.3 mg/dL (8.5-10.5) 07/13/23 20:30 Total Bilirubin 0.2 mg/dL (0.15-1.2) 07/13/23 20:30 AST 10 U/L (0-32) 07/13/23 20:30 ALT 7 U/L (0-33) 07/13/23 20:30 Alkaline Phosphatase 100 U/L (35-105) 07/13/23 20:30 Troponin T Baseline < 6 ng/L (0-10) 07/13/23 20:30 Total Protein 6.8 g/dL (6.6-8.7) 07/13/23 20:30 Albumin 4.1 g/dL (3.5-5.2) 07/13/23 20:30 Globulin 2.7 g/dL (1.3-4.6) 07/13/23 20:30 Lipase 33 U/L (13-60) 07/13/23 20:30 Ethyl Alcohol < 10 mg/dL (0-10) 07/13/23 20:30 All radiology interpretation(s) finalized by discharge EKG Data EKG 1: I personally reviewed and interpreted this EKG as follows: EKG interpretation date: 07/13/23 EKG interpretation time: 20:26 Interpretation: nsr hr [address] elevation qrs 100 qtc 409 Discharge Plan Discharge Patient Disposition: Home Clinical Impression: Chest pain Condition: Stable Prescriptions: No Action cholecalciferol (vitamin D3) 1,250 mcg (50,000 unit) capsule 50,000 unit PO .weekly Qty: 30 6RF pantoprazole 40 mg tablet,delayed release (DR/EC) See Rx Instructions .ROUTE .COMPLEX Qty: 90 1RF Dose Instruction: TAKE 1 TABLET BY MOUTH DAILY Rx Instructions: TAKE 1 TABLET BY MOUTH DAILY Xcopri 150 mg tablet 150 mg PO DAILY Qty: 30 2RF (DME) AFP foot drop brace See Rx Instructions .Route .MEDSUPPLY Qty: 1 0RF Rx Instructions: As directed budesonide-formoterol [Symbicort] 80-4.5 mcg/actuation HFA aerosol inhaler 2 puff inhalation BID Qty: 10.2 0RF albuterol sulfate 90 mcg/actuation HFA aerosol inhaler 1 inh inhalation QID PRN (Reason: shortness of breath or wheezing) Qty: 8.5 3RF levetiracetam 750 mg tablet 1,500 mg PO BID Qty: 360 2RF (DME) lancets [OneTouch UltraSoft 2 Lancet] 30 gauge misc See Rx Instructions .Route Qty: 100 2RF Rx Instructions: As directed rosuvastatin 20 mg tablet 20 mg PO DAILY Qty: 90 1RF teriparatide [Forteo] 20 mcg/dose (600mcg/2.4mL) pen injector 20 mcg SUBCUT DAILY Qty: 2.4 2RF methimazole 5 mg tablet See Rx Instructions .ROUTE .COMPLEX Qty: 30 0RF Dose Instruction: Take 1/2 (one-half) tablet by mouth once daily Rx Instructions: Take 1/2 (one-half) tablet by mouth once daily Discharge Orders: Discharge ED (Routine); Ordered 07/13/23 Ordered By: Pamela Dorman Referrals: Charli Bonilla MD [Primary Care Provider] - Discharge Diet: Advance as tolerated Discharge Activity: Resume usual activity Patient Instructions: Chest Pain (ED) Coding Level of Care Code ED Quality Control Coordinator for Pankaj Terrell
[2023-07-13 21:11] LABS: Basophils # 0.1 10^3/uL (0.0-0.1); Basophils % 0.7 %; Eosinophils # 0.3 10^3/uL (0.0-0.8); Eosinophils % 4.4 %; Hematocrit 42.5 % (36-47); Lymphocytes # 3.4 10^3/uL (0.8-4.8); Lymphocytes % 49.6 %; Mean Corpuscular HGB Conc 33.4 g/dL (30-55); Mean Corpuscular Hemoglobin 30.3 pg (27-33); Mean Corpuscular Volume 90.6 fl (85-98); Mean Platelet Volume 11.2 fL (7.4-10.4); Monocytes # 0.3 10^3/uL (0.2-0.9); Monocytes % 4.7 %; Neutrophils # 2.73 10^3/uL (1.8-7.7); Neutrophils % 40.5 %; Nucleated Red Blood Cells % 0 %; Platelet Count 205 10^3/cmm (157-399); Red Blood Count 4.69 10^6/uL (3.85-5.65); Red Cell Distribution Width 12.9 % (12.1-15.1); White Blood Count 6.77 10^3/uL (3.29-11.43)
[2023-07-13 21:14] VITALS: BP 96/60; PULSE 79; RESP 16; O2SAT 95
[2023-07-13 21:33] LABS: Alanine Aminotransferase 7 U/L (0-33); Albumin Level 4.1 g/dL (3.5-5.2); Alkaline Phosphatase 100 U/L (35-105); Aspartate Amino Transferase 10 U/L (0-32); Blood Urea Nitrogen 13 mg/dL (6-20); Calcium 10.3 mg/dL (8.5-10.5); Carbon Dioxide 26 mmol/L (22-29); Chloride 101 mmol/L (98-107); Creatinine Clr Calc Pharmacy 72.9051; Globulin 2.7 g/dL (1.3-4.6); Glomerular Filtration Rate 65.8 mL/min (90-130); Glucose 181 mg/dL (65-115); Lipase 33 U/L (13-60); Osmolality Calculated 289 mOsm/kg (285-295); Sodium 137 mmol/L (136-145); Total Bilirubin 0.2 mg/dL (0.15-1.2); Total Protein 6.8 g/dL (6.6-8.7); Troponin(5th) Baseline < 6 ng/L (0-10)
[2023-07-13 21:37] LABS: Alcohol Level < 10 mg/dL (0-10)
[2023-07-13 21:53] VITALS: BP 95/62; PULSE 76; RESP 16; TEMP 36.6; O2SAT 96
== END 2023-07-13 21:54 | disposition home or self-care (01) ==
PROVIDERS: Emergency Provider Emergency Medicine; PCP Family Medicine
DX: R07.9 Chest pain, unspecified (principal); F17.210 Nicotine dependence, cigarettes, uncomplicated; E11.40 Type 2 diabetes mellitus with diabetic neuropathy, unspecified
CPT/HCPCS: 70450; 71045; 80053; 80307; 83690; 84484; 85025; 93005; 99285

== ENCOUNTER 2023-08-16 10:48 | Outpatient (CLI) | payer MEDICARE, MEDICAID, SELFPAY ==
[2023-08-16 12:01] LABS: 25 Hydroxy Vitamin D 66 ng/mL (30-100); Thyroid Stimulating Hormone 0.89 uIU/mL (0.27-4.20)
[2023-08-17 06:44] LABS: T3 Total 110 ng/dL (76-181)
== END 2023-08-16 10:49 | disposition home or self-care (01) ==
LOC: LAB 10:50
PROVIDERS: PCP Family Medicine; Visit Provider Internal Medicine
DX: E55.9 Vitamin D deficiency, unspecified (principal); E78.5 Hyperlipidemia, unspecified; M81.0 Age-related osteoporosis without current pathological fracture; E05.90 Thyrotoxicosis, unspecified without thyrotoxic crisis or storm; E04.1 Nontoxic single thyroid nodule
CPT/HCPCS: 36415; 82306; 84439; 84443; 84480

== ENCOUNTER → 2023-09-07 10:17 | Outpatient (BNVA) | payer MEDICARE, MEDICAID, SELFPAY | PROVIDERS: PCP Family Medicine; Visit Provider Psychiatry & Neurology Neurology | DX: G40.919 Epilepsy, unspecified, intractable, without status epilepticus (principal); E55.9 Vitamin D deficiency, unspecified | CPT/HCPCS: 99213; G0463 ==

== ENCOUNTER 2023-10-06 08:00 | Oncology outpatient (recurring) (ONCR) | payer MEDICARE, MEDICAID, SELFPAY ==
[2023-09-08 08:19] VITALS: BP 104/66; PULSE 68; RESP 16; O2SAT 99
[2023-09-08] MEDS: romosozumab-aqqg 210 mg/2.34 mL syr SUBCUT (08:38)
[2023-10-06] MEDS: romosozumab-aqqg 210 mg/2.34 mL syr SUBCUT (08:22)
== END 2023-10-07 23:59 | disposition home or self-care (01) ==
PROVIDERS: PCP Family Medicine; Visit Provider Internal Medicine
DX: M81.0 Age-related osteoporosis without current pathological fracture (principal); Z79.899 Other long term (current) drug therapy
CPT/HCPCS: 96372; J3111

== ENCOUNTER 2023-11-03 07:35 | Oncology outpatient (recurring) (ONCR) | payer MEDICARE, MEDICAID, SELFPAY ==
[2023-11-03] MEDS: romosozumab-aqqg 210 mg/2.34 mL syr SUBCUT (08:05)
== END 2023-11-06 23:59 | disposition home or self-care (01) ==
PROVIDERS: PCP Family Medicine; Visit Provider Internal Medicine
DX: M81.0 Age-related osteoporosis without current pathological fracture (principal); Z79.899 Other long term (current) drug therapy
CPT/HCPCS: 96372; J3111

== ENCOUNTER → 2023-11-07 09:44 | Outpatient (BNVA) | payer MEDICARE, MEDICAID, SELFPAY | PROVIDERS: PCP Family Medicine; Visit Provider Podiatrist Foot & Ankle Surgery | DX: M21.372 Foot drop, left foot; G62.9 Polyneuropathy, unspecified; L84 Corns and callosities; E11.42 Type 2 diabetes mellitus with diabetic polyneuropathy | CPT/HCPCS: 99213 ==

== ENCOUNTER 2023-12-01 07:45 | Oncology outpatient (recurring) (ONCR) | payer MEDICARE, MEDICAID, SELFPAY ==
[2023-12-01 07:59] VITALS: BP 97/62; PULSE 66; RESP 16; TEMP 36.4; O2SAT 98
[2023-12-01] MEDS: romosozumab-aqqg 210 mg/2.34 mL syr SUBCUT (08:04)
== END 2023-12-07 23:59 | disposition home or self-care (01) ==
LOC: ONCMED 07:46
PROVIDERS: PCP Family Medicine; Visit Provider Internal Medicine
DX: M81.0 Age-related osteoporosis without current pathological fracture (principal); Z79.899 Other long term (current) drug therapy
CPT/HCPCS: 96377; J3111

== ENCOUNTER 2023-12-29 07:47 | Oncology outpatient (recurring) (ONCR) | payer MEDICARE, MEDICAID, SELFPAY ==
[2023-12-29] MEDS: romosozumab-aqqg 210 mg/2.34 mL syr SUBCUT (08:14)
[2023-12-29 08:17] VITALS: BP 106/71; PULSE 71; RESP 16; TEMP 37.1; O2SAT 96
== END 2024-01-06 23:59 | disposition home or self-care (01) ==
LOC: ONCMED 07:47
PROVIDERS: PCP Family Medicine; Visit Provider Internal Medicine
DX: M81.0 Age-related osteoporosis without current pathological fracture (principal); Z79.899 Other long term (current) drug therapy
CPT/HCPCS: 96372; J3111

== ENCOUNTER 2024-01-21 14:21 | Emergency (ER) | payer MEDICARE, MEDICAID, SELFPAY ==
[2024-01-21 14:25] VITALS: BP 134/78; PULSE 92; RESP 16; TEMP 36.7; O2SAT 97
--- NOTE | 2024-01-21 14:27 | XRR_ITS ---
PROCEDURE INFORMATION: Exam: XR Left Foot Exam date and time: 01/21/2024 2:43 PM Age: 53 years old Clinical indication: Injury or trauma; Other: Hit foot on dresser; Blunt trauma; Left TECHNIQUE: Imaging protocol: Radiologic exam of the left foot. Views: 3 or more views. COMPARISON: No relevant prior studies available. FINDINGS: Bones/joints: Normal. Soft tissues: Normal. XR/XR foot LT min 3V* [id number] IMPRESSION: No acute findings.
--- NOTE | 2024-01-21 14:54 | XRR_ITS ---
PROCEDURE INFORMATION: Exam: XR Left Ankle Exam date and time: 01/21/2024 2:54 PM Age: 53 years old Clinical indication: Ankle and foot; Left; Patient HX: Lt lateral ankle/foot pain post pinning injury TECHNIQUE: Imaging protocol: Radiologic exam of the left ankle. Views: 3 or more views. COMPARISON: CR (LOW EXM, ) 01/21/2024 2:43 PM FINDINGS: Bones/joints: Negative for acute bone abnormality. Soft tissues: Normal. XR/XR ankle LT min 3V* [id number] IMPRESSION: No acute findings.
== END 2024-01-21 16:16 | disposition left against medical advice (07) ==
PROVIDERS: Emergency Provider Family Medicine; PCP Family Medicine
DX: Z53.21 Procedure and treatment not carried out due to patient leaving prior to being seen by health care provider (principal)
CPT/HCPCS: 73610; 73630; 99283

== ENCOUNTER 2024-01-26 07:47 | Oncology outpatient (recurring) (ONCR) | payer MEDICARE, MEDICAID, SELFPAY ==
[2024-01-26] MEDS: romosozumab-aqqg 210 mg/2.34 mL syr SUBCUT (08:32)
== END 2024-02-06 23:59 | disposition home or self-care (01) ==
PROVIDERS: PCP Family Medicine; Visit Provider Internal Medicine
DX: M81.0 Age-related osteoporosis without current pathological fracture (principal); Z79.899 Other long term (current) drug therapy
CPT/HCPCS: 96372; J3111

== ENCOUNTER 2024-02-26 07:53 | Oncology outpatient (recurring) (ONCR) | payer MEDICARE, MEDICAID, SELFPAY ==
[2024-02-26] MEDS: romosozumab-aqqg 210 mg/2.34 mL syr SUBCUT (08:12)
== END 2024-03-08 23:59 | disposition home or self-care (01) ==
PROVIDERS: PCP Family Medicine; Visit Provider Internal Medicine
DX: M81.0 Age-related osteoporosis without current pathological fracture (principal); Z79.899 Other long term (current) drug therapy
CPT/HCPCS: 96372; J3111

== ENCOUNTER → 2024-03-01 11:07 | Outpatient (BNVA) | payer MEDICARE, MEDICAID, SELFPAY | PROVIDERS: PCP Family Medicine; Visit Provider Internal Medicine | DX: M81.0 Age-related osteoporosis without current pathological fracture (principal); E05.90 Thyrotoxicosis, unspecified without thyrotoxic crisis or storm; E04.1 Nontoxic single thyroid nodule; R13.10 Dysphagia, unspecified; E78.5 Hyperlipidemia, unspecified; E55.9 Vitamin D deficiency, unspecified | CPT/HCPCS: 36415; 80053; 82306; 84075; 84080; 84100; 84439; 84443; 84480 ==

== ENCOUNTER 2024-03-25 07:55 | Oncology outpatient (recurring) (ONCR) | payer MEDICARE, MEDICAID, SELFPAY ==
[2024-03-25] MEDS: romosozumab-aqqg 210 mg/2.34 mL syr SUBCUT (08:24)
[2024-03-25 08:27] VITALS: BP 110/76; PULSE 76; RESP 16; TEMP 36.7; O2SAT 97
== END 2024-04-05 23:59 | disposition home or self-care (01) ==
PROVIDERS: PCP Family Medicine; Visit Provider Internal Medicine
DX: M81.0 Age-related osteoporosis without current pathological fracture (principal); Z79.899 Other long term (current) drug therapy
CPT/HCPCS: 96372; J3111

== ENCOUNTER 2024-04-22 07:45 | Oncology outpatient (recurring) (ONCR) | payer MEDICARE, MEDICAID, SELFPAY ==
[2024-04-22] MEDS: romosozumab-aqqg 210 mg/2.34 mL syr SUBCUT (08:15)
== END 2024-05-06 23:59 | disposition home or self-care (01) ==
PROVIDERS: PCP Family Medicine; Visit Provider Internal Medicine
DX: M81.0 Age-related osteoporosis without current pathological fracture (principal); Z79.899 Other long term (current) drug therapy
CPT/HCPCS: 96372; J3590

== ENCOUNTER → 2024-05-09 08:37 | Outpatient (BNVA) | payer MEDICARE, MEDICAID, SELFPAY | PROVIDERS: PCP Family Medicine; Visit Provider Podiatrist Foot & Ankle Surgery | DX: E11.9 Type 2 diabetes mellitus without complications (principal); M21.372 Foot drop, left foot; M62.838 Other muscle spasm | CPT/HCPCS: 99214 ==

== ENCOUNTER 2024-05-20 09:02 | Oncology outpatient (recurring) (ONCR) | payer MEDICARE, MEDICAID, SELFPAY ==
[2024-05-20] MEDS: romosozumab-aqqg 210 mg/2.34 mL syr SUBCUT (09:28)
== END 2024-06-05 23:59 | disposition home or self-care (01) ==
PROVIDERS: PCP Family Medicine; Visit Provider Internal Medicine
DX: M81.0 Age-related osteoporosis without current pathological fracture (principal); Z79.899 Other long term (current) drug therapy
CPT/HCPCS: 96372; J3590

== ENCOUNTER 2024-06-17 09:26 | Oncology outpatient (recurring) (ONCR) | payer OTHER, MEDICAID, SELFPAY ==
[2024-06-17 09:55] VITALS: BP 120/76; PULSE 83; RESP 16; TEMP 36.7; O2SAT 95
[2024-06-17] MEDS: romosozumab-aqqg 210 mg/2.34 mL syr SUBCUT (09:56)
== END 2024-07-06 23:59 | disposition home or self-care (01) ==
PROVIDERS: PCP Family Medicine; Visit Provider Internal Medicine
DX: M81.0 Age-related osteoporosis without current pathological fracture (principal); Z79.620 Long term (current) use of immunosuppressive biologic
CPT/HCPCS: 96372; J3590

== ENCOUNTER → 2024-06-28 08:47 | Outpatient (BNVA) | payer MEDICARE, MEDICAID, SELFPAY | PROVIDERS: PCP Student in an Organized Health Care Education/Training Program; Visit Provider Internal Medicine | DX: E78.5 Hyperlipidemia, unspecified (principal); E55.9 Vitamin D deficiency, unspecified; R07.81 Pleurodynia; R13.10 Dysphagia, unspecified; E04.1 Nontoxic single thyroid nodule; E05.90 Thyrotoxicosis, unspecified without thyrotoxic crisis or storm; M81.0 Age-related osteoporosis without current pathological fracture | CPT/HCPCS: 80053; 82306; 84439; 84443; 84480 ==

== ENCOUNTER 2024-07-15 10:49 | Oncology outpatient (recurring) (ONCR) | payer OTHER, MEDICAID, SELFPAY ==
[2024-07-15 11:12] VITALS: BP 105/69; PULSE 78; RESP 16; TEMP 36.6; O2SAT 97
[2024-07-15] MEDS: romosozumab-aqqg 210 mg/2.34 mL syr SUBCUT (11:41)
== END 2024-08-05 23:59 | disposition home or self-care (01) ==
PROVIDERS: PCP Student in an Organized Health Care Education/Training Program; Visit Provider Internal Medicine
DX: M81.0 Age-related osteoporosis without current pathological fracture (principal); Z79.899 Other long term (current) drug therapy
CPT/HCPCS: 96372; J3590

== ENCOUNTER 2024-08-12 08:13 | Oncology outpatient (recurring) (ONCR) | payer OTHER, MEDICAID, SELFPAY | END 2024-09-05 23:59 | disposition home or self-care (01) | PROVIDERS: PCP Student in an Organized Health Care Education/Training Program; Visit Provider Internal Medicine | DX: M81.0 Age-related osteoporosis without current pathological fracture (principal); Z79.899 Other long term (current) drug therapy; F17.210 Nicotine dependence, cigarettes, uncomplicated; G40.919 Epilepsy, unspecified, intractable, without status epilepticus; E55.9 Vitamin D deficiency, unspecified; E11.69 Type 2 diabetes mellitus with other specified complication; R41.3 Other amnesia; J45.909 Unspecified asthma, uncomplicated; E05.90 Thyrotoxicosis, unspecified without thyrotoxic crisis or storm; E78.5 Hyperlipidemia, unspecified; K21.9 Gastro-esophageal reflux disease without esophagitis | CPT/HCPCS: 96372; G0463; J3590 ==

== ENCOUNTER → 2024-11-13 10:01 | Outpatient (BNVA) | payer OTHER, MEDICAID, SELFPAY | PROVIDERS: PCP Student in an Organized Health Care Education/Training Program; Visit Provider Podiatrist Foot & Ankle Surgery | DX: M21.372 Foot drop, left foot (principal); M62.838 Other muscle spasm; E11.69 Type 2 diabetes mellitus with other specified complication | CPT/HCPCS: 99213 ==